=== PATIENT | male | born 1985 | race Hispanic/Latino ===

== ENCOUNTER 2017-03-25 22:44 | Emergency (ER) | payer OTHER ==
[2017-03-25 22:50] VITALS: BP 130/82; PULSE 105; RESP 16; TEMP 98.2; O2SAT 100
--- NOTE | 2017-03-25 23:39 | ED PDOC ---
HPI: Abdomen Time Seen by Provider: 03/25/17 23:07 Chief Complaint (Nursing): Groin Pain Chief Complaint (Provider): Back Pain History Per: Patient Additional Complaint(s): Patient is a 31 yo male, no PMH, reports he feels as though he has a hernia. Complaints of left groin pain x several months now, worsening today. Reports he lifts heavy things at work and believes maybe he is not lifting correctly. Pt requesting MRI Past Medical History Reviewed: Nursing Documentation, Vital Signs Vital Signs: Last Vital Signs Temp 98.2 F 03/25/17 22:47 Pulse 105 H 03/25/17 22:47 Resp 16 03/25/17 22:47 BP 130/82 03/25/17 22:47 Pulse Ox 100 03/25/17 23:41 - Medical History PMH: No Chronic Diseases - Surgical History Surgical History: No Surg Hx - Family History Family History: States: Unknown Family Hx - Living Arrangements Living Arrangements: With Family - Social History Current smoker - smoking cessation education provided: No Alcohol: Social Drugs: Cannabis - Allergies Allergies/Adverse Reactions: Allergies Allergy/AdvReac Type Severity Reaction Status Date / Time No Known Allergies Allergy Verified 03/26/17 09:06 Review of Systems ROS Statement: Except As Marked, All Systems Reviewed And Found Negative Gastrointestinal: Positive for: Abdominal Pain Physical Exam - Reviewed Nursing Documentation Reviewed: Yes Vital Signs Reviewed: Yes - Physical Exam Appears: Positive for: Well, Non-toxic, No Acute Distress Head Exam: Positive for: ATRAUMATIC, NORMAL INSPECTION, NORMOCEPHALIC Skin: Positive for: Normal Color, Warm, DRY Eye Exam: Positive for: EOMI, Normal appearance, PERRL ENT: Positive for: Normal ENT Inspection Neck: Positive for: Normal, Painless ROM Cardiovascular/Chest: Positive for: Regular Rate, Rhythm Respiratory: Positive for: CNT, Normal Breath Sounds Gastrointestinal/Abdominal: Positive for: Normal Exam, Bowel Sounds, Soft. Negative for: Tenderness, Distended, Guarding, Hernia Back: Positive for: Normal Inspection Extremity: Positive for: Normal ROM Neurologic/Psych: Positive for: Alert, Oriented - ECG O2 Sat by Pulse Oximetry: 100 Medical Decision Making Medical Decision Making: Pt educated on indications for MRI and advised that it is not clinically indicated at this time. No hernia elicited on physical exam at this time. Pt educated on indications for surgical repair and advised that Pt should follow up with PMD/ Surgical referral for elective, non emergent, repair Pt requesting US and Pt made aware that US not in house at this time, can return tomorrow if pain persists. Return sooner if pain worsens at anytime. Signs and symptoms of incarcerated hernia discussed at length. Disposition - Clinical Impression Clinical Impression: Hernia - Patient ED Disposition Is Patient to be Admitted: No - Disposition Disposition: Routine/Home Disposition Time: 23:00 Condition: GOOD Forms: [facility] ([place]) - POA Present On Arrival: None
== END 2017-03-26 00:03 | disposition home or self-care (01) ==
LOC: H.ER 22:44
DX: K46.9 Unspecified abdominal hernia without obstruction or gangrene (principal)

== ENCOUNTER 2017-03-26 08:42 | Emergency (ER) | payer OTHER ==
[2017-03-26 08:57] VITALS: BP 142/77; PULSE 97; RESP 16; TEMP 98; O2SAT 97; BMI 23.3
--- NOTE | 2017-03-26 09:15 | ED PDOC ---
HPI: Male Pain Time Seen by Provider: 03/26/17 08:53 Chief Complaint (Nursing): Groin Pain Chief Complaint (Provider): Hernia History Per: Patient History/Exam Limitations: no limitations Current Symptoms Are (Timing): Still Present Additional Complaint(s): John Baxter, a 31 year old male, presents to the ED stating that he thinks he may have a hernia x2 days. The patient states that he has been feeling the discomfort of a hernia for a few years but never to the point where has had to see medical attention. The patient reports that the pain may have been exacerbated by the heavy lifting that he does at work. Denies urinary symptoms, blood in urine. Past Medical History Reviewed: Historical Data, Nursing Documentation, Vital Signs Vital Signs: Last Vital Signs Temp 98.0 F 03/26/17 08:56 Pulse 97 H 03/26/17 08:56 Resp 16 03/26/17 08:56 BP 142/77 03/26/17 08:56 Pulse Ox 97 03/26/17 08:56 - Medical History PMH: No Chronic Diseases - Surgical History Surgical History: No Surg Hx - Family History Family History: States: Unknown Family Hx - Social History Current smoker - smoking cessation education provided: Yes Ex-Smoker (has not smoked in the last 12 months): Yes Alcohol: None Drugs: Other (Marijuana) - Allergies Allergies/Adverse Reactions: Allergies Allergy/AdvReac Type Severity Reaction Status Date / Time No Known Allergies Allergy Verified 03/26/17 09:06 Review of Systems ROS Statement: Except As Marked, All Systems Reviewed And Found Negative Genitourinary Male: Positive for: Other Physical Exam - Reviewed Nursing Documentation Reviewed: Yes Vital Signs Reviewed: Yes - Physical Exam Appears: Positive for: Non-toxic, No Acute Distress Head Exam: Positive for: ATRAUMATIC, NORMAL INSPECTION, NORMOCEPHALIC Skin: Positive for: Normal Color, Warm, Dry. Negative for: Rash Eye Exam: Positive for: Normal appearance, EOMI, PERRL. Negative for: Nystagmus Cardiovascular/Chest: Positive for: Regular Rate, Rhythm, Chest Non Tender. Negative for: Tachycardia Respiratory: Positive for: Normal Breath Sounds. Negative for: Rhonchi, Wheezing, Respiratory Distress Male Genital Exam: Positive for: normal genitalia, no hernia (no hernia palpable ), inguinal tenderness (left inguinal are mildly tender) Neurologic/Psych: Positive for: Alert, Oriented, Gait - ECG O2 Sat by Pulse Oximetry: 97 (RA) Pulse Ox Interpretation: Normal Medical Decision Making Medical Decision Makin Initial Impression: 31 year old male presenting with hernia Initial plan * Reevalaution 0910 Patient is medically stable and will be discharged home with instructions to follow up with PMD for further testing. Scribe Attestation Documented by Sahra Saavedra acting as a scribe for Lucille Suarez MD. Provider Attestation: All medical record entries made by the Scribe were at my direction and personally dictated by me. I have reviewed the chart and agree that the record accurately reflects my personal performance of the history, physical exam, medical decision making, and the department course for this patient. I have also personally directed, reviewed, and agree with the discharge instructions and disposition. Disposition - Clinical Impression Clinical Impression: Chronic pain of left groin - Patient ED Disposition Is Patient to be Admitted: No Doctor Will See Patient In The: Office Counseled Patient/Family Regarding: Need For Followup - Disposition Referrals: [facility] [Outside] Juanjo Harper MD [Staff Provider] - Guy Zabala MD [Medical Doctor] - Disposition: Routine/Home Disposition Time: 09:10 Condition: STABLE Instructions: Groin Pain (ED) Forms: [employer] ([place]) - POA Present On Arrival: None
== END 2017-03-26 09:16 | disposition home or self-care (01) ==
LOC: H.ER 08:42
DX: R10.32 Left lower quadrant pain (principal); G89.29 Other chronic pain

== ENCOUNTER 2018-04-20 23:13 | Emergency (ER) | payer OTHER ==
[2018-04-20 23:14] VITALS: BMI 23.3
[2018-04-20 23:20] VITALS: TEMP 97.6; O2SAT 100
--- NOTE | 2018-04-20 23:30 | ED PDOC ---
HPI: Psych/Substance Abuse Time Seen by Provider: 04/20/18 23:29 Chief Complaint (Nursing): Alcohol Ingestion Chief Complaint (Provider): etoh History Per: Patient, EMS Additional Complaint(s): 32-year-old male presents to emergency department acutely intoxicated. Patient was noted to be stumbling onto the street and fell hitting his forehead against the ground. He did not sustain loss of consciousness. Patient admits to drinking every day and states that he drank heavily today. PMD: none Past Medical History Reviewed: Historical Data, Nursing Documentation, Vital Signs Vital Signs: Last Vital Signs Temp 97.6 F 04/20/18 23:19 Pulse 102 H 04/20/18 23:19 Resp 20 04/20/18 23:19 BP 158/102 H 04/20/18 23:19 Pulse Ox 100 04/20/18 23:19 - Medical History PMH: No Chronic Diseases - Surgical History Surgical History: No Surg Hx - Family History Family History: States: No Known Family Hx - Living Arrangements Living Arrangements: Alone - Social History Current smoker - smoking cessation education provided: No Alcohol: > 2 Drinks/Day Drugs: Cannabis - Immunization History Hx Tetanus Toxoid Vaccination: Yes - Allergies Allergies/Adverse Reactions: Allergies Allergy/AdvReac Type Severity Reaction Status Date / Time No Known Allergies Allergy Verified 03/26/17 09:06 Review of Systems ROS Statement: Except As Marked, All Systems Reviewed And Found Negative Neurological: Positive for: Other (head injury with no LOC) Psych: Positive for: Other (etoh) Physical Exam - Reviewed Nursing Documentation Reviewed: Yes Vital Signs Reviewed: Yes - Physical Exam Appears: Positive for: Well, Non-toxic, No Acute Distress Head Exam: Positive for: ATRAUMATIC (contusion to mid forehead with small abrasion, no active bleeding) Skin: Positive for: Normal Color. Negative for: Rash Eye Exam: Positive for: Normal appearance, EOMI, PERRL Neck: Positive for: Normal Cardiovascular/Chest: Positive for: Regular Rate, Rhythm Respiratory: Positive for: Normal Breath Sounds. Negative for: Respiratory Distress Neurologic/Psych: Positive for: Alert, Other (intoxicated, answers some questions appropriately) - ECG O2 Sat by Pulse Oximetry: 100 Pulse Ox Interpretation: Normal - Other Rad CT head X-Ray: Read By Radiologist X-Ray Interpretation: no acute finding Medical Decision Making Medical Decision Makin-year-old intoxicated male with head injury. Plan: BAL Glucose POC CT head CAT scan demonstrates no acute finding. Patient's parents arrived at bedside and state they were willing to assume responsibiliy of and take patient home given that he is acutely intoxicated. Patient is stable for discharge with parents. Disposition - Clinical Impression Clinical Impression: Alcohol abuse with intoxication, Head injury - Patient ED Disposition Is Patient to be Admitted: No - Disposition Referrals: [facility] [Outside] Disposition: Routine/Home Disposition Time: 01:08 Condition: STABLE Instructions: Closed Head Injury (DC), Alcohol Abuse and Alcoholism (DC) Forms: [facility] ([place]ic)
[2018-04-21 01:57] VITALS: BP 151/86; PULSE 87; RESP 17
--- NOTE | 2018-04-21 13:18 | CT ---
Date of service: 04/21/2018 PROCEDURE: CT HEAD WITHOUT CONTRAST. HISTORY: trauma COMPARISON: Noncontrast head CT 04/10/2016. TECHNIQUE: Axial computed tomography images were obtained through the head/brain without intravenous contrast. Radiation dose: Total exam DLP = 1803.56 mGy-cm. This CT exam was performed using one or more of the following dose reduction techniques: Automated exposure control, adjustment of the mA and/or kV according to patient size, and/or use of iterative reconstruction technique. FINDINGS: Limitations: Motion artifacts. HEMORRHAGE: No intracranial hemorrhage. BRAIN: Normal boothe-white matter differentiation and density are appreciated throughout the cerebrum and cerebellum with the brainstem appearing unremarkable as well. There is no mass effect. There is no suspicious extra-axial fluid collection and the midline brain anatomy appears diffusely unremarkable. VENTRICLES: Unremarkable. No hydrocephalus. CALVARIUM: No destructive bony lesion or displaced fracture identified including through the skullbase. Minimal left parietal scalp edema/hematoma identified. There is interval resolution of prior limited left frontal skull of tissue edema/hematoma. PARANASAL SINUSES: Unremarkable as visualized. No significant inflammatory changes. MASTOID AIR CELLS: Unremarkable as visualized. No inflammatory changes. OTHER FINDINGS: None. IMPRESSION: Minimal left parietal scalp edema/hematoma noted. Prior small left frontal scalp soft tissue changes has resolved. No additional interval findings, both intra and extra-axial. Intrinsic brain CT pattern appears unremarkable. Motion artifact exam. Concordant preliminary report from [facility], 04/21/2018.
== END 2018-04-21 01:00 | disposition home or self-care (01) ==
LOC: H.ER 23:13
DX: F10.129 Alcohol abuse with intoxication, unspecified (principal); S09.90XA Unspecified injury of head, initial encounter; W19.XXXA Unspecified fall, initial encounter; Y92.89 Other specified places as the place of occurrence of the external cause